=== PATIENT | male | born 1925 | race Caucasian/White ===

== ENCOUNTER 2016-07-19 01:51 | Inpatient (IN) | payer OTHER ==
[~2016-07-19] VITALS: Ht 177.8 cm; Wt 67.4 kg
[~2016-07-19 01:51] MED LIST: ASCORBIC ACID500 M3 PO; ASPIR-LOW81 MG PO; ASPIRIN81 M2 PO; BISACODYL5 MG PO; CIPROFLOXACIN500 M1 PO; CLOPIDOGREL75 MG PO; CRESTOR10 MG PO; DIGOXIN125 MCG PO; DOCUSATE SODIU100 MG PO; ENDOCET 5-3251 EACH PO; FENOFIBRATE160 M1 PO; FOLIC ACID1 MG PO; FUROSEMIDE20 MG PO; FUROSEMIDE40 MG PO; GLUCOPHAGE850 MG PO; IMDUR120 MG PO; IMDUR60 MG PO; LISINOPRIL2.5 MG PO; LISINOPRIL20 MG PO; LISINOPRIL5 MG PO; LOPRESSOR25 MG PO; LOPRESSOR50 MG PO; LOVENOX40 MG/0.4 SC; LOW DOSE ASPIRI81 M1 PO; METFORMIN HCL500 MG PO; NITROGLYCERIN0.4 MG SL; NORVASC5 MG PO; OMEPRAZOLE20 MG PO; PLAVIX75 MG PO; POLYETHYLENE GL17 GM PO; PRAVASTATIN SOD80 MG PO; PRILOSEC20 MG PO; PRINIVIL20 MG PO; RANEXA500 MG PO; SENNA PLUS TAB1 EACH PO; SPIRIVA RESPIMAT4 GM IH; SPIRONOLACTONE25 MG PO; TAMSULOSIN HCL0.4 MG PO; THERAGRAN1 TABLET PO; TYLENOL REGULA325 MG PO; Tums,OsCal PO; VITAMIN D31000 UNI2 PO
[2016-07-19 02:53] LABS: EOSINOPHIL (%) 2.9 % (0-5); EOSINOPHIL COUNT 0.2 K/uL (0-0.3); HEMATOCRIT 32.9 % (38.0-50.0); IMMATURE GRANULOCYTE (%) 0.3 % (0.0-0.7); IMMATURE GRANULOCYTE COUNT 0.2 K/uL; LYMPHOCYTE COUNT 1.4 K/uL (1.0-2.8); MCH 28.7 PG (29.0-34.0); MCHC 31.6 G/DL (30.0-36.0); MCV 90.6 FL (86-99); MONOCYTE (%) 12.4 % (3-12); MONOCYTE COUNT 0.8 K/uL (0-0.8); NEUTROPHIL (%) 61.5 % (45-76); NEUTROPHIL COUNT 3.8 K/uL (1.8-6.4); PLATELET COUNT 170 K/uL (156-360); RBC DIS.WIDTH-CV 15.9 % (11.8-14.6); RBC DIS.WIDTH-SD 50.9 % (39-53); RED BLOOD COUNT 3.63 M/uL (4.00-5.50); WHITE BLOOD COUNT 6.1 K/uL (4.1-10.2)
[2016-07-19 03:03] LABS: CHLORIDE 103 mEq/L (99-109); POTASSIUM 4.1 mEq/L (3.7-5.4); SODIUM 143 mEq/L (136-147)
[2016-07-19 03:05] LABS: GLUCOSE 136 mg/dL (70-99)
[2016-07-19 03:06] LABS: ANION GAP 7 MEQ/L (2-14)
[2016-07-19 03:07] LABS: TOTAL BILIRUBIN 0.5 mg/dL (0.0-1.0)
[2016-07-19 03:08] LABS: ALKALINE PHOSPHATASE 48 IU/L (3-129); GFR ESTIMATE (CALCULATED) > 59 mL/min/
[2016-07-19 03:10] LABS: UREA NITROGEN (BUN) 15 mg/dL (9-23)
[2016-07-19 03:17] LABS: TROP-I INTERPRETATION NEGATIVE; TROPONIN-I 0.07 ng/mL (0.0-0.30)
[2016-07-19 04:14] LABS: D-DIMER ELISA 1.27 mg/L FEU (< 0.57)
[2016-07-19 07:16] LABS: INTER. NORMALIZED RATIO 1.1; PROTHROMBIN TIME 11.7 (9.2-11.2); PTT 30.6 (25-32)
[2016-07-19 07:21] LABS: POINT-OF-CARE METER ID UU14100415
[2016-07-19 08:43] LABS: TYPE OF FLUID PLEURAL
[2016-07-19] MEDS ORDERED: TYLENOL REGULA325 MG PO (08:44)
[2016-07-19] MEDS ORDERED: LASIX20 MG PO (08:47)
[2016-07-19] MEDS ORDERED: LISINOPRIL5 MG PO (08:47)
[2016-07-19] MEDS ORDERED: POTASSIUM CHLO10 ME3 PO (08:48)
[2016-07-19] MEDS ORDERED: TRAMADOL HCL50 MG PO (08:48)
[2016-07-19 09:22] LABS: BODY FLUID RBC'S 745 /MM^3 (0-100); BODY FLUID WBC'S 291 /MM^3 (0-500); RED CELL DILUTION 1; WBC DILUTION 1; WHITE CELL RAW COUNT 233
[2016-07-19 09:52] LABS: BODY FLUID LDH 43 IU/L; BODY FLUID PROTEIN < 3.0 G/DL
[2016-07-19 10:23] LABS: BODY FLUID EOSINOPHILS 0 % (0-25); MONO RAW COUNT 97; MONONUCLEAR WBC'S 97 %; POLY RAW COUNT 3; POLYNUCLEAR WBC'S 3 % (0-25)
[2016-07-19 12:57] LABS: POINT-OF-CARE METER ID UU14100415
[2016-07-19 13:05] LABS: ADD MIUA? YES; BILIRUBIN NEGATIVE; BLOOD TRACE; COLOR PALE STRAW ((YELLOW)); GLUCOSE (STRIP) NEGATIVE; KETONES NEGATIVE; LEUKOCYTES NEGATIVE; NITRITE NEGATIVE; PH, URINE 7.5 (5-8); PROTEIN (STRIP) NEGATIVE; SPECIFIC GRAVITY 1.012 (1.000-1.030); UROBILINOGEN 0.2 MG/DL (0.2-1.0)
[2016-07-19 13:11] LABS: BACTERIA NONE SEEN /HPF; EPITHELIAL CELLS NONE SEEN /HPF; MUCUS NONE SEEN /LPF; UCUL ADDED? NO; WHITE BLOOD CELLS NONE SEEN /HPF (0-5)
[2016-07-19 17:49] LABS: POINT-OF-CARE METER ID UU14100415
[2016-07-19 21:00] VITALS: BP 115/64
[2016-07-19 22:07] LABS: POINT-OF-CARE METER ID UU14174225
[2016-07-20] VITALS: BP 109/57
[2016-07-20 04:01] VITALS: BP 107/59
[2016-07-20 07:24] LABS: HEMATOCRIT 34.1 % (38.0-50.0); MCHC 32.6 G/DL (30.0-36.0); MEAN PLAT.VOLUME 11.8 uM^3 (9.0-12.4); PLATELET COUNT 171 K/uL (156-360); RBC DIS.WIDTH-CV 15.9 % (11.8-14.6); RBC DIS.WIDTH-SD 51.2 % (39-53); RED BLOOD COUNT 3.83 M/uL (4.00-5.50); WHITE BLOOD COUNT 7.4 K/uL (4.1-10.2)
[2016-07-20 07:38] LABS: EOSINOPHIL (%) 3.6 % (0-5); EOSINOPHIL COUNT 0.3 K/uL (0-0.3); IMMATURE GRANULOCYTE (%) 0.1 % (0.0-0.7); LYMPHOCYTE COUNT 1.4 K/uL (1.0-2.8); MONOCYTE (%) 17.5 % (3-12); MONOCYTE COUNT 1.3 K/uL (0-0.8); NEUTROPHIL (%) 60.1 % (45-76); NEUTROPHIL COUNT 4.5 K/uL (1.8-6.4)
[2016-07-20 07:42] LABS: ANION GAP 7 MEQ/L (2-14); CHLORIDE 95 MEQ/L (99-109); GFR ESTIMATE (CALCULATED) > 59 mL/min/; GLUCOSE 133 mg/dL (70-99); MAGNESIUM 1.8 mg/dl (1.3-2.7); SAMPLE HEMOLYSIS CHECK 0; SAMPLE ICTERIC CHECK 0; SAMPLE LIPEMIA CHECK 0; SODIUM 140 MEQ/L (136-147); UREA NITROGEN (BUN) 16 mg/dL (9-23)
[2016-07-20 07:43] LABS: ALKALINE PHOSPHATASE 40 IU/L (3-129); ANION GAP 8 MEQ/L (2-14); CHLORIDE 95 MEQ/L (99-109); GFR ESTIMATE (CALCULATED) > 59 mL/min/; GLUCOSE 135 mg/dL (70-99); POTASSIUM 3.8 MEQ/L (3.7-5.4); SAMPLE HEMOLYSIS CHECK 0; SAMPLE ICTERIC CHECK 0; SAMPLE LIPEMIA CHECK 0; SODIUM 140 MEQ/L (136-147); TOTAL BILIRUBIN 0.7 MG/DL (0.0-1.0); UREA NITROGEN (BUN) 16 mg/dL (9-23)
[2016-07-20 08:09] VITALS: BP 102/58
[2016-07-20 10:46] VITALS: BP 100/48
[2016-07-20 16:13] VITALS: BP 103/52
[2016-07-21] VITALS: BP 109/60
[2016-07-21 07:30] VITALS: BP 106/50
[2016-07-21 07:49] VITALS: BP 104/48
[2016-07-21 10:46] VITALS: BP 114/42
[2016-07-21 16:00] VITALS: BP 102/46
[2016-07-21 21:46] LABS: POINT-OF-CARE METER ID UU14174225
[2016-07-22 00:08] VITALS: BP 97/53
[2016-07-22 06:49] LABS: ANION GAP 5 MEQ/L (2-14); CHLORIDE 92 MEQ/L (99-109); GFR ESTIMATE (CALCULATED) > 59 mL/min/; GLUCOSE 128 mg/dL (70-99); POTASSIUM 4.5 MEQ/L (3.7-5.4); SAMPLE HEMOLYSIS CHECK 0; SAMPLE ICTERIC CHECK 0; SAMPLE LIPEMIA CHECK 0; SODIUM 134 MEQ/L (136-147)
[2016-07-22 06:54] LABS: UREA NITROGEN (BUN) 26 mg/dL (9-23)
[2016-07-22 09:18] VITALS: BP 101/49
[2016-07-22] MEDS ORDERED: TAMSULOSIN HCL0.4 MG PO (15:00)
[2016-07-22] MEDS ORDERED: LOPRESSOR25 MG PO (15:00)
[2016-07-22] MEDS ORDERED: FINASTERIDE5 MG PO (15:00)
[2016-07-22] MEDS ORDERED: LYRICA75 MG PO (15:00)
[2016-07-22] MEDS ORDERED: LISINOPRIL2.5 MG PO (15:00)
[2016-07-22] MEDS ORDERED: OXYGEN MC (15:17)
== END 2016-07-22 17:35 | disposition home health service (06) | DRG 291 ==
LOC: EME 01:51 → 5SOUTH 05:25 → EDOF 05:25 → 5SOUTH 20:41
PROVIDERS: Emergency Medicine; Hospitalist; Internal Medicine; Internal Medicine Cardiovascular Disease; Physician Assistant Medical; Radiology Diagnostic Radiology; Student in an Organized Health Care Education/Training Program
PROC: 0HDNXZZ Extraction of Left Foot Skin, External Approach (ICD-10-PCS; principal; 2016-07-19)
PROC: 0W993ZZ Drainage of Right Pleural Cavity, Percutaneous Approach (ICD-10-PCS; 2016-07-19)
DX: I50.23 Acute on chronic systolic (congestive) heart failure (principal); L89.623 Pressure ulcer of left heel, stage 3; L89.893 Pressure ulcer of other site, stage 3; J90 Pleural effusion, not elsewhere classified; N40.1 Benign prostatic hyperplasia with lower urinary tract symptoms; R33.8 Other retention of urine; J44.9 Chronic obstructive pulmonary disease, unspecified; J96.10 Chronic respiratory failure, unspecified whether with hypoxia or hypercapnia; Z99.81 Dependence on supplemental oxygen; I48.0 Paroxysmal atrial fibrillation; I25.5 Ischemic cardiomyopathy; I25.10 Atherosclerotic heart disease of native coronary artery without angina pectoris; I25.2 Old myocardial infarction; I08.1 Rheumatic disorders of both mitral and tricuspid valves; I27.2 Other secondary pulmonary hypertension; I73.9 Peripheral vascular disease, unspecified; I10 Essential (primary) hypertension; E78.5 Hyperlipidemia, unspecified; E11.42 Type 2 diabetes mellitus with diabetic polyneuropathy; K21.9 Gastro-esophageal reflux disease without esophagitis; Z66 Do not resuscitate; R22.0 Localized swelling, mass and lump, head; E78.00 Pure hypercholesterolemia, unspecified; Z98.61 Coronary angioplasty status; Z96.642 Presence of left artificial hip joint
CPT/HCPCS: 71020; 71275; 80048; 80053; 81003; 82945; 82948; 83605; 83615 91; 83735; 83880; 84157; 84484; 85025; 85379; 85610; 85730; 87040; 87070; 87075; 87205; 88108; 88305; 89051; 93005; 94799; 99202; 99281; 99285; J1644; J1815; J1940

== ENCOUNTER 2016-07-28 08:18 | Emergency (ER) | payer OTHER ==
[~2016-07-28] VITALS: Ht 177.8 cm; Wt 66.6 kg
[~2016-07-28 08:18] MED LIST changes: +FINASTERIDE5 MG PO; +LASIX20 MG PO; +LYRICA75 MG PO; +OXYGEN MC; +POTASSIUM CHLO10 ME3 PO; +TRAMADOL HCL50 MG PO
[2016-07-28 09:38] LABS: ADD MIUA? NO; BILIRUBIN NEGATIVE; BLOOD NEGATIVE; COLOR YELLOW ((YELLOW)); GLUCOSE (STRIP) NEGATIVE; KETONES 5; LEUKOCYTES NEGATIVE; NITRITE NEGATIVE; PROTEIN (STRIP) NEGATIVE; UCUL ADDED? NO; UROBILINOGEN 0.2 MG/DL (0.2-1.0)
[2016-07-28 09:42] LABS: EOSINOPHIL (%) 4.9 % (0-5); EOSINOPHIL COUNT 0.3 K/uL (0-0.3); HEMATOCRIT 34.5 % (38.0-50.0); IMMATURE GRANULOCYTE (%) 0.2 % (0.0-0.7); IMMATURE GRANULOCYTE COUNT 0.1 K/uL; LYMPHOCYTE COUNT 1.1 K/uL (1.0-2.8); MCHC 32.8 G/DL (30.0-36.0); MCV 88.7 FL (86-99); MEAN PLAT.VOLUME 10.8 uM^3 (9.0-12.4); MONOCYTE (%) 11.8 % (3-12); MONOCYTE COUNT 0.7 K/uL (0-0.8); NEUTROPHIL (%) 63.8 % (45-76); NEUTROPHIL COUNT 3.7 K/uL (1.8-6.4); PLATELET COUNT 164 K/uL (156-360); RBC DIS.WIDTH-CV 15.7 % (11.8-14.6); RBC DIS.WIDTH-SD 50.6 % (39-53); RED BLOOD COUNT 3.89 M/uL (4.00-5.50); WHITE BLOOD COUNT 5.7 K/uL (4.1-10.2)
[2016-07-28 09:50] LABS: CHLORIDE 101 mEq/L (99-109); POTASSIUM 4.3 mEq/L (3.7-5.4); SODIUM 140 mEq/L (136-147)
[2016-07-28 09:52] LABS: GLUCOSE 136 mg/dL (70-99)
[2016-07-28 09:54] LABS: ANION GAP 9 MEQ/L (2-14); TOTAL BILIRUBIN 0.3 mg/dL (0.0-1.0)
[2016-07-28 09:56] LABS: ALKALINE PHOSPHATASE 49 IU/L (3-129); GFR ESTIMATE (CALCULATED) > 59 mL/min/
[2016-07-28 09:57] LABS: UREA NITROGEN (BUN) 23 mg/dL (9-23)
[2016-07-28 10:05] LABS: TROP-I INTERPRETATION NEGATIVE; TROPONIN-I 0.04 ng/mL (0.0-0.30)
[2016-07-28 12:49] VITALS: BP 132/60
== END 2016-07-28 12:49 | disposition home or self-care (01) ==
LOC: EME → EDBD 08:18 → EME 12:49
PROVIDERS: Emergency Medicine
DX: R06.00 Dyspnea, unspecified (principal); E11.9 Type 2 diabetes mellitus without complications; J44.9 Chronic obstructive pulmonary disease, unspecified; E78.5 Hyperlipidemia, unspecified; I10 Essential (primary) hypertension; I25.2 Old myocardial infarction; K21.9 Gastro-esophageal reflux disease without esophagitis; Z96.642 Presence of left artificial hip joint
CPT/HCPCS: 71010; 80053; 81003; 83605; 84484; 85025; 87040; 93005; 99281; 99285